=== PATIENT | male | born 1965 | race Caucasian/White ===

== ENCOUNTER 2024-01-05 11:55 | Emergency (ER) | payer BC, SELFPAY ==
[2024-01-05 12:11] VITALS: BP 128/66; PULSE 87; RESP 16; TEMP 36.8; O2SAT 100
--- NOTE | 2024-01-05 12:42 | ED.WOUNDLAC ---
HPI - Wound/Laceration General Chief Complaint: Wound/Laceration Stated Complaint: left big toe wound Time Seen by Provider: 01/05/24 12:43 Source: patient, RN notes reviewed and old records reviewed Mode of arrival: ambulatory Limitations: no limitations History of Present Illness HPI narrative: 58-year-old male presents to the [facility] with complaints of a wound to his big toe, swelling and redness to the foot and calf. States that he stepped on some nails. Did not seek treatment States he has been washing it, apply Neosporin. States they are working on rehabbing house when he a stepped on some med nails on MondayNovember 25, 9 days ago. Has had increased pain, redness and swelling. Swelling is up to mid calf. Open Wound to the plantar aspect of great toe 2nd toe has a chronic wound to the distal aspect of it. Patient and deny any changes to it recently. Reports his tetanus was 4 years ago per patient Patient denies any past medical or surgical history. Denies being diabetic Patient tetanus UTD: Yes (4 years ago) Related Data Home Medications Medication Instructions Recorded Confirmed No Home Medications 01/05/24 01/05/24 Allergies Allergy/AdvReac Type Severity Reaction Status Date / Time Sulfa (Sulfonamide AdvReac Rash Verified 01/05/24 12:19 Antibiotics) Review of Systems Review of Systems: All systems reviewed & are unremarkable except as noted in HPI and below Constitutional: Constitutional: Reports no additional constitutional complaints Eyes: Eyes: Reports no additional eye complaints ENT: Reports system reviewed and no additional complaints, except as documented Cardiovascular: Cardiovascular: Reports no additional cardiovascular complaints, Denies chest pain and Denies dyspnea Respiratory: Respiratory: Reports no additional respiratory complaints, Denies chest congestion, Denies cough and Denies dyspnea Gastrointestinal: Gastrointestinal: Reports no additional gastrointestinal complaints, Denies abdominal pain, Denies nausea and Denies vomiting Musculoskeletal: Musculoskeletal: Reports as per HPI Integumentary/Breasts: Skin/Breast: Reports as per HPI, Reports erythema, Reports skin pain, Reports skin swelling and Reports wounds Neurologic: Reports system reviewed and no additional complaints, except as documented Psychiatric: Psychiatric: Reports no additional psychiatric complaints Allergic/Immunologic: Allergic/Immunologic: Reports no additional allergic/immunologic complaints [facility] Past Medical History Medical History (Updated 01/05/24 @ 16:09 by Kaylah Reyna APRN) Patient denies medical problems Surgical History Surgical History (Updated 01/05/24 @ 12:44 by Kaylah Reyna APRN) Hx of cholecystectomy Comments At the time of my signature, I reviewed and agree with the nursing past medical, surgical, social, and family history. There is no relevant family history pertinent to the patient complaint. Exam Const: General: cooperative, healthy appearing, comfortable, no acute distress, well developed, alert and well nourished Nutritional Appearance: well nourished Orientation/consciousness: patient oriented x3 Limitations: no limitations HENMT: Head: normal to inspection Ears: hearing grossly normal bilaterally and external ears normal Face/Nose/Sinus: Normal external nose present, Normal nares present, Normal nasal mucous membranes and turbinates present, normal facial exam and face symmetric Face and sinus: normal facial exam and face symmetric Eyes: General: appearance normal, both eyes and all related structures Alignment and Position: alignment normal Periorbital: periorbital findings normal Pupils: Equal, round and reactive pupils present EOM: EOMs intact bilaterally Neck: Neck: normal visual inspection, full ROM, no lymphadenopathy and no meningeal signs Chest: Chest palpation & inspection: normal inspection of the chest Resp: Effort & Inspectio
== END 2024-01-05 12:55 | disposition short-term general hospital (02) ==
PROVIDERS: Emergency Provider Nurse Practitioner
DX: S91.102A Unspecified open wound of left great toe without damage to nail, initial encounter (principal); W45.0XXA Nail entering through skin, initial encounter
CPT/HCPCS: 99202; G0463

== ENCOUNTER 2024-01-05 13:37 | Emergency (ER) | payer BC, SELFPAY ==
--- NOTE | ~2024-01-05 | XR_ITS ---
XR toe 1st LT min 2V Ordering provider: Sandor Hebert MD History: . stepped on lui nail 9 days ago . Comparison: None. FINDINGS: BONES: No acute fracture or dislocation. JOINT SPACES: Osteoarthritic changes of the first metatarsophalangeal joint. SOFT TISSUES: Swelling seen in the soft tissues medially and laterally. Clinical correlation advised. IMPRESSION: No acute osseous abnormality. Reviewed, dictated and finalized at location A.
[2024-01-05 14:00] VITALS: BP 163/91; PULSE 73; RESP 16; TEMP 36.6; O2SAT 99
[2024-01-05 15:21] LABS: Lactic Acid Reflex 1.1 mmol/L (0.7-2.0)
[2024-01-05 15:31] LABS: Basophils Absolute Auto 0.1 K/mm3 (0.0-0.1); Basophils Percent Auto 0.9 % (0.2-1.2); Eosinophils Absolute Auto 0.3 K/mm3 (0-0.3); Eosinophils Percent Auto 3.2 % (0-4.4); Hematocrit 39.4 % (42.0-52.0); Immature Granulocyte Absolute 0.03 K/mm3 (0.00-0.031); Immature Granulocyte Percent A 0.4 % (0-0.5); Lymphocytes Absolute Auto 1.73 K/mm3 (0.9-3.2); Lymphocytes Percent Auto 21.5 % (18.3-44.2); Mean Corpuscular Hemoglobin 28.3 pg (26-34); Mean Corpuscular Volume 85.8 fl (80-100); Mean Platelet Volume 8.7 fl (7.4-10.4); Monocytes Absolute Auto 0.8 K/mm3 (0.1-0.6); Monocytes Percent Auto 10.3 % (2.6-8.5); Neutrophils Absolute Auto 5.1 K/mm3 (1.3-6.7); Neutrophils Percent Auto 63.7 % (45.5-73.1); Platelet Count Result 227 k/mm3 (150-375); Red Blood Count 4.59 M/mm3 (4.6-6.20); Red Cell Distribution Width 13.7 % (11.5-14.5)
[2024-01-05 15:54] LABS: Alanine Aminotransferase 40 U/L (6-50); Albumin Level 4.5 g/dL (3.5-5.1); Alkaline Phosphatase 63 U/L (38-126); Anion Gap 9 mmol/L (4-12); Aspartate Amino Transferase 45 U/L (17-59); Bilirubin,Total 0.6 mg/dL (0.2-1.3); Blood Urea Nitrogen 14 mg/dL (9-20); CRP 3.1 mg/dL (<1.0); Calcium 9.3 mg/dL (8.4-10.2); Carbon Dioxide 30 mmol/L (22-30); Chloride 102 mmol/L (98-107); Estimated CRCL calculation 113 ml/min; Estimated Glomerular Filt Rate > 60; Glucose 102 mg/dL (65-110); Potassium 3.9 mmol/L (3.4-5.0); Sodium 141 mmol/L (137-145)
[2024-01-05 15:59] LABS: Erythrocyte Sedimentation Rate 87 mm/hr (0-20)
--- NOTE | 2024-01-05 16:55 | ED.GENADULT ---
HPI - General Adult General Chief complaint: Extremity Injury, Lower Stated complaint: Left foot pain/swelling/wound on L big toe x9days Time Seen by Provider: 01/05/24 16:00 History of Present Illness HPI narrative: Patient is a 58-year-old male who presents to the emergency department this afternoon due to a wound in his left great toe. Patient states that he stepped on a nail on December 26 and since then he has just been applying a topical antibiotic cream on it but the wound has gotten infected. Patient believes that his last tetanus shot was somewhere between 4-5 years ago. He is currently denying any additional symptoms including fevers, chills and denies any. Moderate swelling to his left foot. Patient denies any history of diabetes. No additional symptoms or concerns at this time. Related Data Allergies Allergy/AdvReac Type Severity Reaction Status Date / Time Sulfa (Sulfonamide AdvReac Rash Verified 01/05/24 12:19 Antibiotics) Review of Systems Review of Systems: All systems are reviewed and are negative unless stated otherwise in the HPI. [facility] Past Medical History Medical History Patient denies medical problems Surgical History Surgical History Hx of cholecystectomy Exam Narrative: General: Alert, awake, afebrile, in no acute distress. HEENT: PERRL, no rhinorrhea, no post nasal drip, oropharynx clear. Cardiovascular: Regular rate and rhythm, no murmurs, rubs or gallops, no peripheral edema. Respiratory: Clear to auscultation bilaterally, no tachypnea, no wheezing, no rhonchi, no rubs, no respiratory distress. Abdomen: Soft, nontender, nondistended, no rebound, no guarding, no peritoneal signs. Musculoskeletal: No joint swelling or deformity, normal muscle tone. Skin: Round wound to the bottom of the patient's left great toe measuring approximately 1 x 1 cm with a realignment drainage and moderate swelling to the left foot at and ankle. Neurological: Alert and oriented to person, place, and time. Follows all commands. No focal deficits, speech is clear and fluent. Course Vital Signs Vital signs: Vital Signs Temperature 97.8 F 01/05/24 14:00 Pulse Rate 73 01/05/24 14:00 Respiratory Rate 16 01/05/24 14:00 Blood Pressure 163/91 H 01/05/24 14:00 Pulse Oximetry 99 01/05/24 14:00 Oxygen Delivery Room Air 01/05/24 14:00 Temperature 97.8 F 01/05/24 14:00 Pulse Rate 73 01/05/24 14:00 Respiratory Rate 16 01/05/24 14:00 Blood Pressure 163/91 H 01/05/24 14:00 Pulse Oximetry 99 01/05/24 14:00 Oxygen Delivery Room Air 01/05/24 14:00 Medical Decision Making MDM Narrative Medical decision making narrative: The patient was evaluated by myself in the emergency department. History is obtained from patient who is an independent historian and physical exam was performed. External medical records were reviewed at this time. IV was established and pertinent tests were ordered. Since patient is unsure if his tetanus shot has been over 5 years he was administered a Tdap at this. Laboratory results obtained revealing an ESR of 87 and CRP of 3.1, otherwise unremarkable. Imaging studies obtained included X-ray of the left toe which was independently interpreted by me revealing no acute process, which is pending final radiology interpretation. Differential diagnosis considerations include cellulitis, abscess, osteomyelitis. Comorbidities impacting this visit include none. I have evaluated and discussed social determinants of health with the patient that could potentially impact subsequent diagnosis and treatment plans. On repeat assessment of the patient, reevaluation revealed that the patient is doing well and is in no acute distress. Patient symptoms have remained stable since he arrived to our emergency department. Repeat vital signs were all
[2024-01-05] MEDS: CLINDAMYCIN HCL 150 MG CAP 450 MG PO (17:01)
[2024-01-05] MEDS: TETANUS,DIPHTHERIA,AC PERTUSSIS ADULT (0.5 ML) BOOSTRIX IM (17:02)
[2024-01-05 17:15] VITALS: BP 147/87; PULSE 72; RESP 20; O2SAT 97
== END 2024-01-05 17:16 | disposition home or self-care (01) ==
PROVIDERS: Emergency Provider Emergency Medicine
DX: S91.102A Unspecified open wound of left great toe without damage to nail, initial encounter (principal); L03.116 Cellulitis of left lower limb; Z23 Encounter for immunization; Z90.49 Acquired absence of other specified parts of digestive tract; W45.0XXA Nail entering through skin, initial encounter
CPT/HCPCS: 36415; 73660; 80053; 83605; 85025; 85652; 86140; 87040; 87070; 87077; 87205; 90471; 90715; 99283; A9270